=== PATIENT | male | born 1990 | race Caucasian/White ===

== ENCOUNTER 2017-07-28 09:51 | Emergency (ER) | payer OTHER ==
[~2017-07-28] VITALS: Ht 188 cm; Wt 107.1 kg
[2017-07-28 10:33] LABS: BASOPHIL (%) 0.2 % (0-1); EOSINOPHIL (%) 0.6 % (0-5); EOSINOPHIL COUNT 0.1 K/uL (0-0.3); HEMATOCRIT 46.9 % (38.0-50.0); HEMOGLOBIN 16.3 G/DL (12.5-16.6); IMMATURE GRANULOCYTE (%) 0.6 % (0.0-0.7); LYMPHOCYTE (%) 10.2 % (15-42); LYMPHOCYTE COUNT 1.4 K/uL (1.0-2.8); MCH 29.9 PG (29.0-34.0); MCHC 34.8 G/DL (30.0-36.0); MCV 86.1 FL (86-99); MONOCYTE (%) 9.7 % (3-12); MONOCYTE COUNT 1.3 K/uL (0-0.8); NEUTROPHIL (%) 78.7 % (45-76); NEUTROPHIL COUNT 10.6 K/uL (1.8-6.4); PLATELET COUNT 238 K/uL (156-360); RBC DIS.WIDTH-CV 13.1 % (11.8-14.6); RBC DIS.WIDTH-SD 40.2 % (39-53); RED BLOOD COUNT 5.45 M/uL (4.00-5.50); WHITE BLOOD COUNT 13.4 K/uL (4.1-10.2)
[2017-07-28 10:41] LABS: CHLORIDE 97 mEq/L (99-109); POTASSIUM 4.3 mEq/L (3.7-5.4); SODIUM 138 mEq/L (136-147)
[2017-07-28 10:43] LABS: GLUCOSE 127 mg/dL (70-99)
[2017-07-28 10:46] LABS: SERUM ETHYL ALCOHOL < 10 mg/dL
[2017-07-28 10:48] LABS: UREA NITROGEN (BUN) 18 mg/dL (9-23)
[2017-07-28 10:59] LABS: GFR ESTIMATE (CALCULATED) > 59 mL/min/ (58.99-99999)
[2017-07-28 17:25] LABS: BILIRUBIN NEGATIVE; BLOOD NEGATIVE; COLOR YELLOW ((YELLOW)); GLUCOSE (STRIP) NEGATIVE; KETONES NEGATIVE; LEUKOCYTES NEGATIVE; NITRITE NEGATIVE; PROTEIN (STRIP) 30; SPECIFIC GRAVITY 1.023 (1.000-1.030)
[2017-07-28 17:28] LABS: APPEARANCE CLEAR ((CLEAR))
[2017-07-28 17:42] LABS: AMPHETAMINE NEGATIVE (500 ng/mL); BARBITURATES NEGATIVE (200 ng/mL); BENZODIAZEPINES NEGATIVE (150 ng/mL); BUPRENORPHINE NEGATIVE (10 ng/mL); COCAINE NEGATIVE (150 ng/mL); METHADONE NEGATIVE (200 ng/mL); METHAMPHETAMINE NEGATIVE (500 ng/mL); OPIATES (MORPHINE) NEGATIVE (100 ng/mL); OXYCODONE NEGATIVE (100 ng/mL); PHENCYCLIDINE NEGATIVE (25 ng/mL); PROPOXYPHENE NEGATIVE (300 ng/mL); THC CANNABINOIDS NEGATIVE (50 ng/mL); TRICYCLIC ANTIDEPRESSANTS NEGATIVE (300 ng/mL)
[2017-07-28 19:54] VITALS: BP 127/88
== END 2017-07-28 19:57 ==
LOC: EME 09:51
PROVIDERS: Emergency Medicine
DX: F31.5 Bipolar disorder, current episode depressed, severe, with psychotic features (principal); R45.851 Suicidal ideations; F20.9 Schizophrenia, unspecified; Z59.0 Homelessness
CPT/HCPCS: 80048; 81003; 85025; 90837; 99281; 99284; G0480

== ENCOUNTER 2017-08-06 15:08 | Emergency (ER) | payer OTHER ==
[~2017-08-06] VITALS: Ht 190.5 cm; Wt 106.8 kg
[2017-08-06 16:18] LABS: CHLORIDE 103 mEq/L (99-109); POTASSIUM 3.6 mEq/L (3.7-5.4); SODIUM 142 mEq/L (136-147)
[2017-08-06 16:20] LABS: GLUCOSE 123 mg/dL (70-99)
[2017-08-06 16:24] LABS: CREATININE 1.1 mg/dL (0.6-1.3); GFR ESTIMATE (CALCULATED) > 59 mL/min/ (58.99-99999); UREA NITROGEN (BUN) 16 mg/dL (9-23)
[2017-08-06 17:36] VITALS: BP 115/68
== END 2017-08-06 17:36 | disposition home or self-care (01) ==
LOC: EME 15:08
PROVIDERS: Physician Assistant
DX: T67.8XXA Other effects of heat and light, initial encounter (principal); X30.XXXA Exposure to excessive natural heat, initial encounter; R63.1 Polydipsia; Z59.0 Homelessness
CPT/HCPCS: 80048 91; 99281; 99284

== ENCOUNTER 2017-08-07 17:31 | Emergency (ER) | payer OTHER ==
[~2017-08-07] VITALS: Ht 188 cm; Wt 104.5 kg
[2017-08-07 18:40] LABS: HEMATOCRIT 40.1 % (38.0-50.0); HEMOGLOBIN 14.3 G/DL (12.5-16.6); MCH 30.6 PG (29.0-34.0); MCHC 35.7 G/DL (30.0-36.0); MCV 85.7 FL (86-99); PLATELET COUNT 210 K/uL (156-360); RBC DIS.WIDTH-CV 13.1 % (11.8-14.6); RBC DIS.WIDTH-SD 40.3 % (39-53); RED BLOOD COUNT 4.68 M/uL (4.00-5.50); WHITE BLOOD COUNT 7.7 K/uL (4.1-10.2)
[2017-08-07 18:44] LABS: CHLORIDE 103 mEq/L (99-109); POTASSIUM 3.8 mEq/L (3.7-5.4); SODIUM 140 mEq/L (136-147)
[2017-08-07 18:47] LABS: GLUCOSE 89 mg/dL (70-99)
[2017-08-07 18:48] LABS: SERUM ETHYL ALCOHOL < 10 mg/dL
[2017-08-07 18:49] LABS: GFR ESTIMATE (CALCULATED) > 59 mL/min/ (58.99-99999)
[2017-08-07 18:51] LABS: UREA NITROGEN (BUN) 18 mg/dL (9-23)
[2017-08-07 18:52] LABS: SALICYLATE < 5.0 MG/DL (15-30)
[2017-08-07 18:53] LABS: ACETAMINOPHEN (TYLENOL) < 10 mcg/mL (10-30)
[2017-08-07 19:12] LABS: AMPHETAMINE NEGATIVE (500 ng/mL); BARBITURATES NEGATIVE (200 ng/mL); BENZODIAZEPINES NEGATIVE (150 ng/mL); BUPRENORPHINE NEGATIVE (10 ng/mL); COCAINE NEGATIVE (150 ng/mL); METHADONE NEGATIVE (200 ng/mL); METHAMPHETAMINE NEGATIVE (500 ng/mL); OPIATES (MORPHINE) NEGATIVE (100 ng/mL); OXYCODONE NEGATIVE (100 ng/mL); PHENCYCLIDINE NEGATIVE (25 ng/mL); PROPOXYPHENE NEGATIVE (300 ng/mL); THC CANNABINOIDS NEGATIVE (50 ng/mL); TRICYCLIC ANTIDEPRESSANTS NEGATIVE (300 ng/mL)
[2017-08-07 19:53] VITALS: BP 126/73
== END 2017-08-07 20:07 | disposition home or self-care (01) ==
LOC: EME 17:31
PROVIDERS: Emergency Medicine
DX: F32.9 Major depressive disorder, single episode, unspecified (principal); F31.9 Bipolar disorder, unspecified
CPT/HCPCS: 80048; 85027; 90839; 99281; 99285; G0480

== ENCOUNTER 2017-08-08 07:34 | Emergency (ER) | payer OTHER ==
[~2017-08-08] VITALS: Ht 188 cm; Wt 112.0 kg
[2017-08-08 08:11] LABS: BASOPHIL (%) 0.3 % (0-1); EOSINOPHIL (%) 2.2 % (0-5); EOSINOPHIL COUNT 0.2 K/uL (0-0.3); HEMATOCRIT 40.2 % (38.0-50.0); IMMATURE GRANULOCYTE (%) 0.5 % (0.0-0.7); LYMPHOCYTE (%) 17.6 % (15-42); LYMPHOCYTE COUNT 1.4 K/uL (1.0-2.8); MCH 29.8 PG (29.0-34.0); MCHC 34.8 G/DL (30.0-36.0); MCV 85.5 FL (86-99); MONOCYTE (%) 8.4 % (3-12); MONOCYTE COUNT 0.7 K/uL (0-0.8); NEUTROPHIL COUNT 5.6 K/uL (1.8-6.4); PLATELET COUNT 217 K/uL (156-360); RBC DIS.WIDTH-CV 12.8 % (11.8-14.6); RBC DIS.WIDTH-SD 39.7 % (39-53); WHITE BLOOD COUNT 7.9 K/uL (4.1-10.2)
[2017-08-08 08:14] LABS: APPEARANCE SL.HAZY ((CLEAR)); BILIRUBIN NEGATIVE; BLOOD NEGATIVE; COLOR YELLOW ((YELLOW)); GLUCOSE (STRIP) NEGATIVE; KETONES 5; LEUKOCYTES NEGATIVE; NITRITE NEGATIVE; PROTEIN (STRIP) 30; SPECIFIC GRAVITY 1.026 (1.000-1.030)
[2017-08-08 08:33] LABS: AMPHETAMINE NEGATIVE (500 ng/mL); BARBITURATES NEGATIVE (200 ng/mL); BENZODIAZEPINES NEGATIVE (150 ng/mL); BUPRENORPHINE NEGATIVE (10 ng/mL); COCAINE NEGATIVE (150 ng/mL); METHADONE NEGATIVE (200 ng/mL); METHAMPHETAMINE NEGATIVE (500 ng/mL); OPIATES (MORPHINE) NEGATIVE (100 ng/mL); OXYCODONE NEGATIVE (100 ng/mL); PHENCYCLIDINE NEGATIVE (25 ng/mL); PROPOXYPHENE NEGATIVE (300 ng/mL); THC CANNABINOIDS NEGATIVE (50 ng/mL); TRICYCLIC ANTIDEPRESSANTS NEGATIVE (300 ng/mL)
[2017-08-08 08:51] LABS: CHLORIDE 104 MEQ/L (99-109); GFR ESTIMATE (CALCULATED) > 59 mL/min/ (58.99-99999); GLUCOSE 108 mg/dL (70-99); POTASSIUM 4.1 MEQ/L (3.7-5.4); SODIUM 141 MEQ/L (136-147); UREA NITROGEN (BUN) 20 mg/dL (9-23)
[2017-08-08 09:04] LABS: EPITHELIAL CELLS RARE /HPF; MUCUS 1+ /LPF
[2017-08-08 09:05] LABS: AMORPHOUS URATES CRYSTALS 1+; BACTERIA NONE SEEN /HPF; RED BLOOD CELLS NONE SEEN /HPF (0-5); WHITE BLOOD CELLS RARE /HPF (0-5)
[2017-08-08 09:18] VITALS: BP 146/82
[2017-08-08 11:06] LABS: SERUM ETHYL ALCOHOL < 10 mg/dL
== END 2017-08-08 09:19 | disposition home or self-care (01) ==
LOC: EME 07:34
PROVIDERS: Emergency Medicine
DX: F31.9 Bipolar disorder, unspecified (principal); Z91.14 Patient's other noncompliance with medication regimen; Z59.0 Homelessness
CPT/HCPCS: 80048; 81003; 85025; 90839; 99281; 99284; G0480